=== PATIENT | female | born 1935 | race Caucasian/White ===

== ENCOUNTER 2017-05-10 08:54 | Emergency (ER) | payer OTHER ==
[~2017-05-10] VITALS: Ht 154.9 cm; Wt 46.7 kg
--- NOTE | 2017-05-10 09:19 | NUR ---
ARRIVAL PATIENT ARRIVED TO [facility] AMBULATORY WITH SPOUSE, C/O OF LEFT SHOULDER PAIN X4 DAYS, PATIENT IS VISITING FROM [place] AND PAIN BEGAN ON WEDNESDAY, ATTEMPTED TO TREAT HERSELF, BUT PAIN HAS GOTTEN WORSE, CAME TO ED FOR FURTHER EVAL.
[2017-05-10] MEDS ORDERED: MOME110A2 IH (09:28)
[2017-05-10] MEDS ORDERED: ALBU8.5H7 IH (09:28)
[2017-05-10] MEDS ORDERED: PRED5TAB17 PO (09:28)
[2017-05-10] MEDS ORDERED: MULT1TAB52 PO (09:28)
[2017-05-10] MEDS ORDERED: TORADOL ONE (09:28)
[2017-05-10] MEDS ORDERED: KENALOG-40 ONE (09:29)
--- NOTE | 2017-05-10 09:29 | PCM.EKG ---
[facility] Test Date: 2017-05-10 Test Time: 09:23:20 Pat Name: DILSHAD GARRETT [facility]: [id number] Room: Gender: F [employer] Supervisor: RT : 1935 Requested By: EDENILSON TAY Order Number: [id number] Reading MD: Edenilson TAY Measurements Intervals [place] Rate: 68 P: 71 ME: 154 QRS: 63 QRSD: 90 T: 36 QT: 412 QTc: 438 Interpretive Statements Normal sinus rhythm Anteroseptal infarct, age undetermined Abnormal ECG No previous ECG available for comparison Electronically Signed On 05-11-2017 1:03:50 [employer] APPELLATE CLERK by Edenilson TAY Please click the below link to view image of tracing.
[2017-05-10 09:41] LABS: BASOPHIL # 0.1 10^3/uL (0.0-0.1); BASOPHIL % 0.6 % (0.0-0.2); EOSINOPHIL # 0.4 10^3/uL (0.0-0.2); EOSINOPHIL % 4.5 % (0.0-5.0); HEMOGLOBIN 12.2 g/dL (12.0-15.0); LYMPHOCYTES # 1.7 10^3/uL (1.0-4.8); LYMPHOCYTES % 19.9 % (24.0-44.0); MEAN CELL HGB 28.8 pg (26-34); MEAN CELL HGB CONCENTRATION 31.1 g/dL (33-37); MEAN CORP VOLUME 92.5 fL (78-100); MEAN PLATELET VOLUME 9.2 fL (7.8-11.0); MONOCYTES # 0.8 10^3/uL (0.3-0.8); MONOCYTES % 8.8 % (5.0-12.0); NEUTROPHIL # 5.8 10^3/uL (1.8-7.7); NEUTROPHILS % 65.6 % (41.0-85.0); RED CELL DISTRIBUTION WIDTH 13.9 % (11.5-14.5); WHITE BLOOD CELL 8.8 10^3/uL (4.5-11.0)
--- NOTE | 2017-05-10 09:43 | ER.PDOC ---
General Chief Complaint: Extremities Stated Complaint: PAIN IN LEFT SHOULDER,RIBS Time seen by MD: 09:42 Source: patient Exam Limitations: no limitations History of Present Illness Initial Comments Left shoulder pain for 4 days, No fall or injury. Severity: moderate Allergies: Coded Allergies: Sulfa (Sulfonamide Antibiotics) (Verified Allergy, Unknown, Rash, 05/10/17) codeine (Verified Allergy, Unknown, Rash, 05/10/17) erythromycin base (Verified Allergy, Unknown, Rash, 05/10/17) methadone (Verified Allergy, Unknown, Rash, 05/10/17) morphine (Verified Allergy, Unknown, Rash, 05/10/17) naloxone (Verified Allergy, Unknown, Rash, 05/10/17) Home Meds Reported Medications Multivitamin (MULTIVITAMINS) 1 Each Tablet, 1 TAB PO DAILY, #30 TAB 2 Refills 05/10/17 Mometasone Furoate (ASMANEX) 110 Mcg Aer.pow.ba, 110 MCG IH DAILY24 05/10/17 Albuterol Sulfate (PROAIR HFA) 8.5 Gm Hfa.aer.ad, 8.5 GM IH DAILY24 05/10/17 Prednisone (PREDNISONE) 5 Mg Tab.ds.pk, 5 MG PO DAILY24 05/10/17 Past Medical History Medical History: asthma Surgical History: appendectomy, back LMP (females 10-50): postmenopause Social History Smoking: non-smoker Alcohol Use: none Drug Use: none Review of Systems Constitutional: no symptoms reported Respiratory: no symptoms reported Cardiovascular: no symptoms reported Gastrointestinal: no symptoms reported Musculoskeletal: see HPI All Other Systems: Reviewed and Negative Physical Exam General Appearance: Alert, No Apparent Distress Shoulder: tenderness (left shoulder) Upper Extremities: uninjuried below shoulder Neuro: sensation nml, motor nml Vascular: no vascular compromise Head/ENT: nml inspection, pharynx nml Neck/Back: non-tender, nml inspection, painless ROM Respiratory: chest non-tender, breath sounds nml CVS: reg rate & rhythm, heart sounds nml Abdomen: non-tender, no organomegaly Results/Orders Results/Orders Laboratory Tests Test 05/10/17 09:26 White Blood Count 8.8 10^3/uL (4.5-11.0) Red Blood Count 4.24 10^6/uL (4.00-5.20) Hemoglobin 12.2 g/dL (12.0-15.0) Hematocrit 39.2 % (36.0-46.0) Mean Corpuscular Volume 92.5 fL (78-100) Mean Corpuscular Hemoglobin 28.8 pg (26-34) Mean Corpuscular Hemoglobin Concent 31.1 g/dL (33-37) Red Cell Distribution Width 13.9 % (11.5-14.5) Platelet Count 353 10^3/uL (150-400) Mean Platelet Volume 9.2 fL (7.8-11.0) Neutrophils (%) (Auto) 65.6 % (41.0-85.0) Lymphocytes (%) (Auto) 19.9 % (24.0-44.0) Monocytes (%) (Auto) 8.8 % (5.0-12.0) Neutrophils # (Auto) 5.8 10^3/uL (1.8-7.7) Lymphocytes # (Auto) 1.7 10^3/uL (1.0-4.8) Monocytes # (Auto) 0.8 10^3/uL (0.3-0.8) Absolute Immature Granulocyte (auto 0.05 10^3 u/L (0-2) Eosinophils % 4.5 % (0.0-5.0) Basophils % 0.6 % (0.0-0.2) Basophils # 0.1 10^3/uL (0.0-0.1) Eosinophil Count 0.4 10^3/uL (0.0-0.2) Sodium Level 140 mmol/L (132-145) Potassium Level 3.7 mmol/L (3.6-5.2) Chloride Level 104.0 mmol/L (96-109) Carbon Dioxide Level 28.6 mmol/L (20.0-32) Anion Gap 11.1 Blood Urea Nitrogen 15 mg/dL (7-18) Creatinine 0.79 mg/dL (0.59-1.40) Estimated GFR () 84.5 (>/=60) BUN/Creatinine Ratio 18.0 Glucose Level 101 mg/dL (70-110) Calcium Level 9.0 mg/dL (8.4-10.5) Total Bilirubin 0.4 mg/dL (0.2-1.0) Aspartate Amino Transf (AST/SGOT) 16 U/L (0-35) Alanine Aminotransferase (ALT/SGPT) 20 U/L (12-78) Alkaline Phosphatase 37 U/L (50-136) Total Creatine Kinase 43 U/L (26-192) Creatine Kinase MB 0.8 ng/mL (0.5-3.6) Troponin I < 0.02 ng/mL (0.00-0.05) Total Protein 6.6 g/dL (6.4-8.2) Albumin 3.1 g/dL (3.4-5.0) Globulin 3.5 Percent Immature Gran (Cell Imm) 0.60 % (0.00-0.50) Administered Medications Medications (Trade) Dose Ordered Sig/Cory Route PRN Reason Start Time Stop Time Status Last Admin Dose Admin Ketorolac Tromethamine (Toradol) 60 mg STAT STAT IM 05/10/17 09:26 05/10/17 09:28 DC 05/10/17 09:47 Triamcinolone Acetonide (Kenalog-40) 40 mg STAT STAT IM 05/10/17 09:26 05/10/17 09:28 DC 05/10/17 09:48 EKG/XRAY/CT/US XRAY Comments: Mild joint arthropathy of left shoulder Departure Time of Disposition: 10:17 Disposition: 01 HOME, SELF-CARE Impression: Primary Impression: Shoulder pain, left Condition: Stable Referrals: UNDEFINED,PHYSICIAN (PCP) PRIMARY CARE PROVIDER Additional Instructions: Tramadol Prednisone F/U with your PCP in 2-3 days Duration or Time Spent with Pa: 60 mins Problem Qualifiers Primary Impression: Shoulder pain, left Chronicity: acute Qualified Codes: M25.512 - Pain in left shoulder EDENILSON TAY MD May 10, 2017 09:43
[2017-05-10] MEDS: TORADOL IM STA (09:47)
[2017-05-10] MEDS: KENALOG-40 IM STA (09:48)
--- NOTE | 2017-05-10 09:53 | DIREP ---
PROCEDURE:XRAY SHOULDER MIN 2 VWS-LT COMPARISON:None. INDICATIONS:pain FINDINGS: BONES:Small osteophytes at the AC joint. JOINTS:No dislocation. SOFT TISSUES:Normal. OTHER:Normal. CONCLUSION:Mild AC joint arthropathy. Dictated by: Elvin Lindsey M.D. on 05/10/2017 at 09:51 AM
[2017-05-10 10:07] LABS: ALANINE AMINOTRANSFERASE(ML) 20 U/L (12-78); ALKALINE PHOSPHATASE 37 U/L (50-136); ASPARTATE AMINO TRANSFERASE 16 U/L (0-35); CARBON DIOXIDE 28.6 mmol/L (20.0-32); GLUCOSE 101 mg/dL (70-110)
[2017-05-10 10:34] VITALS: BP 152/63
== END 2017-05-10 10:35 | disposition home or self-care (01) ==
LOC: ER 08:54
DX: M25.512 Pain in left shoulder (principal); J45.909 Unspecified asthma, uncomplicated; Z88.1 Allergy status to other antibiotic agents; Z88.2 Allergy status to sulfonamides; Z88.5 Allergy status to narcotic agent
CPT/HCPCS: 36415; 73030; 80053; 82550; 82553; 84484; 85025; 93005; 96372 ×2; 99285; J1885; J3301